=== PATIENT | male | born 1975 | race Caucasian/White ===

== ENCOUNTER 2021-07-18 19:58 | Emergency (ER) | payer MEDICAID ==
[~2021-07-18] VITALS: Ht 175.3 cm; Wt 84.8 kg
[2021-07-18 20:14] VITALS: BP 153/103
[2021-07-18] MEDS ORDERED: BACITRACIN OINT 500 UNITS/GM PKT TP ONE (20:50)
[2021-07-18] MEDS ORDERED: LIDOCAINE MPF 1% 10 MG/ML VIAL INJ ONE (20:50)
[2021-07-18] MEDS ORDERED: BACI1PAC6 TP (20:53)
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
[2021-07-18] MEDS ORDERED: LIDOCAINE MPF 1% 5 ML ONE (21:02)
--- NOTE | 2021-07-18 21:32 | NUR ---
WOUND CLEANED AND LAC TRAY SETUP COMPLETE
[2021-07-18] MEDS ORDERED: CEPH-588 PO (21:41)
--- NOTE | 2021-07-18 21:57 | NUR ---
Patient discharged with v/s stable. Written and verbal after care instructions given and explained. Patient alert, oriented and verbalized understanding of instructions. Ambulatory with steady gait. All questions addressed prior to discharge. ID band removed. Patient advised to follow up with PMD. Rx of BACITRACIN & KEFLEX given. Patient educated on indication of medication including possible reaction and side effects. Opportunity to ask questions provided and answered.
== END 2021-07-18 21:54 | disposition home or self-care (01) ==
LOC: MED 19:58
DX: S91.011A Laceration without foreign body, right ankle, initial encounter (principal); Z79.899 Other long term (current) drug therapy; W22.8XXA Striking against or struck by other objects, initial encounter; Y93.89 Activity, other specified; Y92.89 Other specified places as the place of occurrence of the external cause; Y99.8 Other external cause status
CPT/HCPCS: 12004; 99282; J2001